=== PATIENT | female | born 1970 | race Caucasian/White ===

== ENCOUNTER 2016-07-06 13:00 | Emergency (ER) | payer SELFPAY ==
[~2016-07-06] VITALS: Ht 170.2 cm; Wt 111.6 kg
[~2016-07-06 13:00] MED LIST: ALBUTEROL SULF8.5 GM IH; BACTRIM,SEPT1 TABLET PO; MEDROL DOSEPAK4 MG PO; NOHOMEMEDS; PREDNISONE20 MG PO; VICODIN,LORT1 TABLET PO; ZITHROMAX Z-PA250 MG PO
[2016-07-06 13:31] VITALS: BP 116/86
[2016-07-06] MEDS ORDERED: MOTRIN600 MG PO (15:43)
== END 2016-07-06 15:55 | disposition home or self-care (01) ==
LOC: EME 13:00
DX: S39.011A Strain of muscle, fascia and tendon of abdomen, initial encounter (principal); M79.604 Pain in right leg; X58.XXXA Exposure to other specified factors, initial encounter
CPT/HCPCS: 73502; 99281; 99283

== ENCOUNTER 2016-07-26 14:34 | Emergency (ER) | payer SELFPAY ==
[~2016-07-26] VITALS: Ht 170.2 cm; Wt 113.6 kg
[~2016-07-26 14:34] MED LIST changes: +MOTRIN600 MG PO
[2016-07-26] MEDS ORDERED: INDOCIN50 MG PO (17:51)
[2016-07-26] MEDS ORDERED: VALIUM5 MG PO (17:51)
[2016-07-26 18:46] VITALS: BP 110/87
== END 2016-07-26 18:49 | disposition home or self-care (01) ==
LOC: EME 14:34
DX: S39.011A Strain of muscle, fascia and tendon of abdomen, initial encounter (principal); W01.0XXA Fall on same level from slipping, tripping and stumbling without subsequent striking against object, initial encounter
CPT/HCPCS: 73502; 99281; 99283; J3010

== ENCOUNTER 2017-02-19 15:46 | Inpatient (IN) | payer OTHER ==
[~2017-02-19] VITALS: Ht 170.2 cm; Wt 102.6 kg
[~2017-02-19 15:46] MED LIST changes: +INDOCIN50 MG PO; +VALIUM5 MG PO
[2017-02-19 16:37] LABS: HEMATOCRIT 47.2 % (36.0-46.0); HEMOGLOBIN 15.6 G/DL (11.9-15.5); MCH 30.4 PG (29.0-34.0); MCHC 33.1 G/DL (30.0-36.0); MCV 91.8 FL (83-99); PLATELET COUNT 259 K/uL (156-360); RBC DIS.WIDTH-CV 12.8 % (11.8-14.6); RBC DIS.WIDTH-SD 43.8 % (39-53); RED BLOOD COUNT 5.14 M/uL (3.80-5.20); WHITE BLOOD COUNT 12.2 K/uL (4.1-10.2)
[2017-02-19 16:47] LABS: CHLORIDE 101 mEq/L (99-109); POTASSIUM 4.4 mEq/L (3.7-5.4); SODIUM 137 mEq/L (136-147)
[2017-02-19 16:49] LABS: GLUCOSE 116 mg/dL (70-99)
[2017-02-19 16:53] LABS: CREATININE 0.9 mg/dL (0.6-1.3); GFR ESTIMATE (CALCULATED) > 59 mL/min/
[2017-02-19 16:54] LABS: UREA NITROGEN (BUN) 12 mg/dL (9-23)
[2017-02-19 17:01] LABS: TROP-I INTERPRETATION NEGATIVE; TROPONIN-I < 0.01 ng/mL (0.0-0.30)
[2017-02-19] MEDS ORDERED: THERAFLU EXP245.5 ML PO (18:16)
[2017-02-19] MEDS ORDERED: DAYQUIL PO (18:18)
[2017-02-19 20:46] VITALS: BP 158/84
[2017-02-19 20:53] LABS: BASE EXCESS -2.6 mEq/L (-3 to +3); BICARBONATE 23.2 mEq/L (22-26); CARBOXY HGB 1.5 % (0-5); COMMENTS - BLOOD GASES C+; DEVICE HFNC; METHEMOGLOBIN 2.1 % (0-1.5); O2 FLOW 9 L/MIN; PCO2 43 mm Hg (35-45); PO2 105 mm Hg (80-100); SITE RR; TOTAL RESP RATE 20 resp/min; pH 7.34 (7.35-7.45)
[2017-02-19 23:37] VITALS: BP 127/69
[2017-02-20 03:54] VITALS: BP 136/77
[2017-02-20 06:47] LABS: HEMATOCRIT 44.2 % (36.0-46.0); HEMOGLOBIN 14.1 G/DL (11.9-15.5); MCH 29.4 PG (29.0-34.0); MCHC 31.9 G/DL (30.0-36.0); MCV 92.3 FL (83-99); PLATELET COUNT 264 K/uL (156-360); RBC DIS.WIDTH-SD 44.4 % (39-53); RED BLOOD COUNT 4.79 M/uL (3.80-5.20); WHITE BLOOD COUNT 11.2 K/uL (4.1-10.2)
[2017-02-20 07:08] LABS: CHLORIDE 103 MEQ/L (99-109); CREATININE 0.8 MG/DL (0.6-1.3); GFR ESTIMATE (CALCULATED) > 59 mL/min/; GLUCOSE 166 mg/dL (70-99); POTASSIUM 4.6 MEQ/L (3.7-5.4); SODIUM 138 MEQ/L (136-147); UREA NITROGEN (BUN) 12 mg/dL (9-23)
[2017-02-20 08:28] VITALS: BP 140/70
[2017-02-20 11:53] VITALS: BP 140/68
[2017-02-20 16:25] VITALS: BP 138/70
[2017-02-20 20:30] VITALS: BP 144/81
[2017-02-21] VITALS (7 sets, daily range): BP systolic 133–140; BP diastolic 64–82
[2017-02-21 04:40] LABS: BASOPHIL (%) 0.1 % (0-1); EOSINOPHIL (%) 0.1 % (0-5); HEMATOCRIT 45.3 % (36.0-46.0); HEMOGLOBIN 14.6 G/DL (11.9-15.5); IMMATURE GRANULOCYTE (%) 0.7 % (0.0-0.7); LYMPHOCYTE COUNT 1.2 K/uL (1.0-2.8); MCH 29.9 PG (29.0-34.0); MCHC 32.2 G/DL (30.0-36.0); MCV 92.6 FL (83-99); MONOCYTE (%) 2.8 % (3-12); MONOCYTE COUNT 0.5 K/uL (0-0.8); NEUTROPHIL (%) 89.3 % (45-76); NEUTROPHIL COUNT 14.9 K/uL (1.8-6.4); PLATELET COUNT 261 K/uL (156-360); RBC DIS.WIDTH-CV 13.1 % (11.8-14.6); RBC DIS.WIDTH-SD 44.4 % (39-53); RED BLOOD COUNT 4.89 M/uL (3.80-5.20); WHITE BLOOD COUNT 16.6 K/uL (4.1-10.2)
[2017-02-21 04:53] LABS: ALBUMIN 3.9 g/dL (3.2-4.8); CHLORIDE 103 mEq/L (99-109); POTASSIUM 3.9 mEq/L (3.7-5.4); SODIUM 141 mEq/L (136-147)
[2017-02-21 04:56] LABS: GLUCOSE 164 mg/dL (70-99); TOTAL PROTEIN 6.7 g/dL (6.4-8.3)
[2017-02-21 04:57] LABS: TOTAL BILIRUBIN 0.4 mg/dL (0.0-1.0)
[2017-02-21 04:59] LABS: ALKALINE PHOSPHATASE 146 IU/L (3-129); CREATININE 0.8 mg/dL (0.6-1.3); GFR ESTIMATE (CALCULATED) > 59 mL/min/
[2017-02-21 05:00] LABS: UREA NITROGEN (BUN) 16 mg/dL (9-23)
[2017-02-21 05:01] LABS: AST (GOT) 26 IU/L (2-34)
[2017-02-21 05:02] LABS: ALT (GPT) 37 IU/L (3-49)
[2017-02-21 08:18] LABS: APPEARANCE SL.HAZY ((CLEAR)); BILIRUBIN NEGATIVE; BLOOD SMALL; COLOR YELLOW ((YELLOW)); GLUCOSE (STRIP) NEGATIVE; KETONES NEGATIVE; LEUKOCYTES NEGATIVE; NITRITE NEGATIVE; PROTEIN (STRIP) 30; SPECIFIC GRAVITY 1.023 (1.000-1.030)
[2017-02-21 08:20] LABS: BACTERIA RARE /HPF; EPITHELIAL CELLS RARE /HPF; MUCUS TRACE /LPF; RED BLOOD CELLS 0-5 /HPF (0-5); WHITE BLOOD CELLS 0-5 /HPF (0-5)
[2017-02-22 00:15] VITALS: BP 135/68
[2017-02-22 07:06] LABS: BASOPHIL (%) 0.2 % (0-1); EOSINOPHIL (%) 0 % (0-5); HEMATOCRIT 44.9 % (36.0-46.0); HEMOGLOBIN 14.1 G/DL (11.9-15.5); IMMATURE GRANULOCYTE (%) 0.5 % (0.0-0.7); LYMPHOCYTE (%) 12.4 % (15-42); LYMPHOCYTE COUNT 1.6 K/uL (1.0-2.8); MCH 29.1 PG (29.0-34.0); MCHC 31.4 G/DL (30.0-36.0); MCV 92.6 FL (83-99); MONOCYTE (%) 5.8 % (3-12); MONOCYTE COUNT 0.7 K/uL (0-0.8); NEUTROPHIL (%) 81.1 % (45-76); NEUTROPHIL COUNT 10.3 K/uL (1.8-6.4); PLATELET COUNT 275 K/uL (156-360); RBC DIS.WIDTH-SD 44.5 % (39-53); RED BLOOD COUNT 4.85 M/uL (3.80-5.20); WHITE BLOOD COUNT 12.6 K/uL (4.1-10.2)
[2017-02-22 07:32] VITALS: BP 154/93
[2017-02-22 07:45] LABS: ALBUMIN 3.6 G/DL (3.2-4.8); ALKALINE PHOSPHATASE 114 IU/L (3-129); ALT (GPT) 60 IU/L (3-49); AST (GOT) 60 IU/L (2-34); CHLORIDE 102 MEQ/L (99-109); CREATININE 0.8 MG/DL (0.6-1.3); GFR ESTIMATE (CALCULATED) > 59 mL/min/; GLUCOSE 130 mg/dL (70-99); POTASSIUM 4.2 MEQ/L (3.7-5.4); SODIUM 139 MEQ/L (136-147); TOTAL BILIRUBIN 0.5 MG/DL (0.0-1.0); TOTAL PROTEIN 6.5 G/DL (6.4-8.3); UREA NITROGEN (BUN) 21 mg/dL (9-23)
[2017-02-22 15:50] VITALS: BP 123/76
[2017-02-22 23:20] VITALS: BP 132/78
[2017-02-23 06:10] LABS: BASOPHIL (%) 0.3 % (0-1); EOSINOPHIL (%) 0 % (0-5); HEMATOCRIT 42.5 % (36.0-46.0); HEMOGLOBIN 13.4 G/DL (11.9-15.5); IMMATURE GRANULOCYTE (%) 0.8 % (0.0-0.7); LYMPHOCYTE (%) 32.4 % (15-42); LYMPHOCYTE COUNT 3.2 K/uL (1.0-2.8); MCH 28.9 PG (29.0-34.0); MCHC 31.5 G/DL (30.0-36.0); MCV 91.8 FL (83-99); MONOCYTE (%) 6.7 % (3-12); MONOCYTE COUNT 0.7 K/uL (0-0.8); NEUTROPHIL (%) 59.8 % (45-76); NEUTROPHIL COUNT 5.9 K/uL (1.8-6.4); PLATELET COUNT 244 K/uL (156-360); RBC DIS.WIDTH-CV 13.1 % (11.8-14.6); RBC DIS.WIDTH-SD 44.7 % (39-53); RED BLOOD COUNT 4.63 M/uL (3.80-5.20); WHITE BLOOD COUNT 9.9 K/uL (4.1-10.2)
[2017-02-23 06:40] LABS: ALBUMIN 3.3 G/DL (3.2-4.8); ALKALINE PHOSPHATASE 101 IU/L (3-129); AST (GOT) 81 IU/L (2-34); CHLORIDE 102 MEQ/L (99-109); CREATININE 0.8 MG/DL (0.6-1.3); GFR ESTIMATE (CALCULATED) > 59 mL/min/; POTASSIUM 3.8 MEQ/L (3.7-5.4); SODIUM 141 MEQ/L (136-147); TOTAL BILIRUBIN 0.6 MG/DL (0.0-1.0); TOTAL PROTEIN 5.7 G/DL (6.4-8.3); UREA NITROGEN (BUN) 19 mg/dL (9-23)
[2017-02-23 06:45] LABS: ALT (GPT) 144 IU/L (3-49); GLUCOSE 86 mg/dL (70-99)
[2017-02-23 07:20] VITALS: BP 137/74
[2017-02-23 12:10] LABS: HEPATITIS B SURFACE ANTIGEN Nonreactive
[2017-02-23 12:11] LABS: HEPATITIS C ANTIBODY Nonreactive
[2017-02-23 12:12] LABS: ANTI-HEPATITIS A VIRUS (IGM) Nonreactive
[2017-02-23 12:13] LABS: ANTI-HEPATITIS B CORE (IGM) Nonreactive
[2017-02-23 16:42] VITALS: BP 146/69
[2017-02-23 23:38] VITALS: BP 114/59
[2017-02-24 05:43] LABS: HEMATOCRIT 44.7 % (36.0-46.0); HEMOGLOBIN 14.3 G/DL (11.9-15.5); MCV 90.7 FL (83-99); PLATELET COUNT 263 K/uL (156-360); RBC DIS.WIDTH-CV 12.8 % (11.8-14.6); RBC DIS.WIDTH-SD 42.9 % (39-53); RED BLOOD COUNT 4.93 M/uL (3.80-5.20)
[2017-02-24 06:17] LABS: BASOPHIL (%) 0.3 % (0-1); EOSINOPHIL (%) 0.1 % (0-5); LYMPHOCYTE (%) 38.2 % (15-42); MONOCYTE (%) 6.6 % (3-12); MONOCYTE COUNT 0.9 K/uL (0-0.8); NEUTROPHIL (%) 53.8 % (45-76)
[2017-02-24 06:29] LABS: ALBUMIN 3.5 G/DL (3.2-4.8); ALKALINE PHOSPHATASE 121 IU/L (3-129); ALT (GPT) 129 IU/L (3-49); AST (GOT) 47 IU/L (2-34); CHLORIDE 103 MEQ/L (99-109); CREATININE 0.9 MG/DL (0.6-1.3); GFR ESTIMATE (CALCULATED) > 59 mL/min/; GLUCOSE 86 mg/dL (70-99); HDL CHOLESTEROL 43 MG/DL (Desirable>=50); LDL CHOLESTEROL 64 mg/dL (Desirable<100); NON-HDL CHOLESTEROL 87 mg/dL (Desirable<160); SODIUM 140 MEQ/L (136-147); TOTAL CHOLESTEROL 130 mg/dL (Desirable<200); TOTAL PROTEIN 6.1 G/DL (6.4-8.3); TRIGLYCERIDES 117 MG/DL (Normal: <150); UREA NITROGEN (BUN) 19 mg/dL (9-23)
[2017-02-24 06:30] LABS: TOTAL BILIRUBIN 0.8 MG/DL (0.0-1.0)
[2017-02-24 07:58] VITALS: BP 147/79
[2017-02-24 12:06] VITALS: BP 132/80
[2017-02-24 15:34] VITALS: BP 126/75
[2017-02-24 23:40] VITALS: BP 124/69
[2017-02-25 07:55] VITALS: BP 131/77
[2017-02-25] MEDS ORDERED: ASPIR-LOW81 MG PO (14:16)
[2017-02-25] MEDS ORDERED: DOXYCYCLINE HY100 M3 PO (14:21)
[2017-02-25] MEDS ORDERED: PREDNISONE10 MG PO (14:21)
[2017-02-25] MEDS ORDERED: SPIRIVA RESPIMAT4 GM IH (14:21)
[2017-02-25] MEDS ORDERED: NICOTINE PATCH1 EAC2 TD (14:21)
[2017-02-25] MEDS ORDERED: ADVAIR HFA120 INHALA IH (14:21)
[2017-02-25 15:38] VITALS: BP 150/87
== END 2017-02-25 15:30 | disposition home or self-care (01) | DRG 190 ==
LOC: EME 15:46 → EDOF 17:47 → 4SOUTH 17:47 → ENRESERV 17:53 → 4SOUTH 19:18
PROVIDERS: Hospitalist; Nurse Practitioner Family
DX: J44.1 Chronic obstructive pulmonary disease with (acute) exacerbation (principal); J96.01 Acute respiratory failure with hypoxia; J10.00 Influenza due to other identified influenza virus with unspecified type of pneumonia; J18.9 Pneumonia, unspecified organism; J44.0 Chronic obstructive pulmonary disease with (acute) lower respiratory infection; J20.9 Acute bronchitis, unspecified; J10.1 Influenza due to other identified influenza virus with other respiratory manifestations; E66.01 Morbid (severe) obesity due to excess calories; F17.200 Nicotine dependence, unspecified, uncomplicated
CPT/HCPCS: 36600; 71045; 71046; 71250; 80048; 80053; 80061; 80074; 81003; 82803; 84484; 85025; 85027; 85379; 87040; 87502; 93005; 94640; 94640 76; 94644; 94760; 94799; 99202; 99281; 99285; J0456; J1650; J2405; J2930; J7030; J7512